=== PATIENT | female | born 1960 | race Caucasian/White ===

== ENCOUNTER 2016-10-15 10:30 | Emergency (ER) | payer OTHER ==
[~2016-10-15] VITALS: Ht 157.5 cm; Wt 78.7 kg
[~2016-10-15 10:30] MED LIST: ACETAMINOPHEN500 MG PO; ASPIR-LOW81 MG PO; AUGMENTIN875 MG PO; CIPRO500 MG PO; ENDOCET 5-3251 EACH PO; FLAGYL500 MG PO; FOLIC ACID1 MG PO; HYCODAN SYRUP480 ML PO; HYDROCHLOROTH12.5 M3 PO; KEFLEX500 MG PO; LISINOPRIL20 MG PO; MEDROL DOSEPAK4 MG PO; MOTRIN800 MG PO; NORCO 7.5/321 TABLET PO; PERCOCET 5/31 TABLET PO; PHENERGAN-CODE120 ML PO; PRAVASTATIN SOD40 MG PO; PREDNISONE20 MG PO; TESSALON PERLE100 MG PO; THIAMINE HCL100 MG PO; TYLENOL WITH C1 EACH PO; ZITHROMAX Z-PA250 MG PO
[2016-10-15 13:27] VITALS: BP 147/76
== END 2016-10-15 13:28 | disposition home or self-care (01) ==
LOC: EME 10:30
DX: S60.011A Contusion of right thumb without damage to nail, initial encounter (principal); X58.XXXA Exposure to other specified factors, initial encounter; I10 Essential (primary) hypertension; Z86.73 Personal history of transient ischemic attack (TIA), and cerebral infarction without residual deficits; Z87.891 Personal history of nicotine dependence; Z79.82 Long term (current) use of aspirin
CPT/HCPCS: 73140; 93971; 99281; 99284

== ENCOUNTER 2016-11-12 17:40 | Emergency (ER) | payer OTHER ==
[~2016-11-12] VITALS: Ht 157.5 cm; Wt 79.4 kg
[2016-11-12 19:12] LABS: HEMATOCRIT 39.6 % (36.0-46.0); MCH 32.5 PG (29.0-34.0); MCHC 34.3 G/DL (30.0-36.0); MCV 94.5 FL (83-99); MEAN PLAT.VOLUME 9.3 uM^3 (9.5-12.4); PLATELET COUNT 224 K/uL (156-360); RBC DIS.WIDTH-CV 12.5 % (11.8-14.6); RBC DIS.WIDTH-SD 43.3 % (39-53); RED BLOOD COUNT 4.19 M/uL (3.80-5.20)
[2016-11-12 19:20] LABS: CHLORIDE 107 mEq/L (99-109); POTASSIUM 4.3 mEq/L (3.7-5.4); SODIUM 139 mEq/L (136-147)
[2016-11-12 19:22] LABS: GLUCOSE 95 mg/dL (70-99)
[2016-11-12 19:23] LABS: ANION GAP 7 MEQ/L (2-14)
[2016-11-12 19:24] LABS: TOTAL BILIRUBIN 0.7 mg/dL (0.0-1.0)
[2016-11-12 19:26] LABS: ALKALINE PHOSPHATASE 66 IU/L (3-129); GFR ESTIMATE (CALCULATED) > 59 mL/min/
[2016-11-12 19:27] LABS: UREA NITROGEN (BUN) 17 mg/dL (9-23)
[2016-11-12 19:29] LABS: LIPASE 16 U/L (1.0-51.0)
[2016-11-12] MEDS ORDERED: ULTRACET1 TABLET PO (21:02)
[2016-11-12 21:12] VITALS: BP 198/91
== END 2016-11-12 21:14 | disposition home or self-care (01) ==
LOC: EME 17:40
PROVIDERS: Physician Assistant
DX: R22.2 Localized swelling, mass and lump, trunk (principal); R22.1 Localized swelling, mass and lump, neck; M54.2 Cervicalgia; R05 Cough
CPT/HCPCS: 70491; 71260; 80053; 83690; 85027; 99281; 99284; J1885; J2765; J7040

== ENCOUNTER 2016-12-29 10:33 | Emergency (ER) | payer OTHER ==
[~2016-12-29] VITALS: Ht 157.5 cm; Wt 79.2 kg
[~2016-12-29 10:33] MED LIST changes: +ULTRACET1 TABLET PO
[2016-12-29 11:42] LABS: HEMATOCRIT 37.4 % (36.0-46.0); MCH 32.7 PG (29.0-34.0); MCHC 34.2 G/DL (30.0-36.0); MCV 95.4 FL (83-99); MEAN PLAT.VOLUME 9.1 uM^3 (9.5-12.4); PLATELET COUNT 214 K/uL (156-360); RBC DIS.WIDTH-CV 12.4 % (11.8-14.6); RBC DIS.WIDTH-SD 42.5 % (39-53); RED BLOOD COUNT 3.92 M/uL (3.80-5.20)
[2016-12-29 11:55] LABS: CHLORIDE 107 mEq/L (99-109); POTASSIUM 4.5 mEq/L (3.7-5.4); SODIUM 139 mEq/L (136-147)
[2016-12-29 11:56] LABS: GLUCOSE 105 mg/dL (70-99)
[2016-12-29 11:58] LABS: ANION GAP 10 MEQ/L (2-14)
[2016-12-29 12:00] LABS: GFR ESTIMATE (CALCULATED) > 59 mL/min/
[2016-12-29 12:01] LABS: UREA NITROGEN (BUN) 19 mg/dL (9-23)
[2016-12-29 13:18] LABS: ADD MIUA? YES; BILIRUBIN NEGATIVE; BLOOD NEGATIVE; COLOR AMBER ((YELLOW)); GLUCOSE (STRIP) NEGATIVE; KETONES NEGATIVE; LEUKOCYTES MODERATE; NITRITE NEGATIVE; PROTEIN (STRIP) NEGATIVE; SPECIFIC GRAVITY 1.018 (1.000-1.030)
[2016-12-29 13:24] LABS: BACTERIA NONE SEEN /HPF; EPITHELIAL CELLS 2+ /HPF; MUCUS TRACE /LPF
[2016-12-29] MEDS ORDERED: ULTRAM50 MG PO (14:59)
[2016-12-29 15:09] VITALS: BP 156/74
[2016-12-30] MEDS ORDERED: ASPIRIN81 M2 PO (17:14)
== END 2016-12-29 15:14 | disposition home or self-care (01) ==
LOC: EME 10:33 → EXP 10:33
DX: N12 Tubulo-interstitial nephritis, not specified as acute or chronic (principal); I10 Essential (primary) hypertension; Z86.73 Personal history of transient ischemic attack (TIA), and cerebral infarction without residual deficits
CPT/HCPCS: 80048; 81003; 85027; 87040; 87086; 99281; 99285; J1335; J1885; J7030; J7050

== ENCOUNTER 2017-08-19 09:12 | Emergency (ER) | payer OTHER ==
[~2017-08-19] VITALS: Ht 157.5 cm; Wt 180.0 kg
[~2017-08-19 09:12] MED LIST changes: +ASPIRIN81 M2 PO; +ULTRAM50 MG PO
[2017-08-19 10:14] LABS: APPEARANCE SL.HAZY ((CLEAR)); BILIRUBIN NEGATIVE; BLOOD NEGATIVE; COLOR YELLOW ((YELLOW)); GLUCOSE (STRIP) NEGATIVE; KETONES NEGATIVE; LEUKOCYTES TRACE; NITRITE NEGATIVE; PROTEIN (STRIP) NEGATIVE; SPECIFIC GRAVITY 1.021 (1.000-1.030)
[2017-08-19 10:19] LABS: BACTERIA NONE SEEN /HPF; EPITHELIAL CELLS RARE /HPF; MUCUS NONE SEEN /LPF; RED BLOOD CELLS 0-5 /HPF (0-5); WHITE BLOOD CELLS 0-5 /HPF (0-5)
[2017-08-19] MEDS ORDERED: NAPROSYN500 MG PO (10:49)
[2017-08-19] MEDS ORDERED: FLEXERIL10 MG PO (10:49)
[2017-08-19 11:00] VITALS: BP 122/76
== END 2017-08-19 11:01 | disposition home or self-care (01) ==
LOC: EME 09:12
PROVIDERS: Nurse Practitioner Family
DX: M54.5 Low back pain (principal); M25.551 Pain in right hip; M25.552 Pain in left hip; R30.0 Dysuria; M25.512 Pain in left shoulder; W01.0XXA Fall on same level from slipping, tripping and stumbling without subsequent striking against object, initial encounter; I10 Essential (primary) hypertension; Z88.1 Allergy status to other antibiotic agents
CPT/HCPCS: 72100; 72170; 73030; 81003; 99281; 99284

== ENCOUNTER 2017-09-26 11:34 | Emergency (ER) | payer OTHER ==
[~2017-09-26] VITALS: Ht 157.5 cm; Wt 81.3 kg
[~2017-09-26 11:34] MED LIST changes: +FLEXERIL10 MG PO; +NAPROSYN500 MG PO
[2017-09-26] MEDS ORDERED: MOBIC7.5 MG PO (13:28)
[2017-09-26] MEDS ORDERED: ULTRAM50 MG PO (13:28)
[2017-09-26 14:03] VITALS: BP 144/84
== END 2017-09-26 14:04 | disposition home or self-care (01) ==
LOC: EME 11:34
DX: S43.402A Unspecified sprain of left shoulder joint, initial encounter (principal); W17.89XA Other fall from one level to another, initial encounter; Y92.812 Truck as the place of occurrence of the external cause; I10 Essential (primary) hypertension; Z86.73 Personal history of transient ischemic attack (TIA), and cerebral infarction without residual deficits; Z87.891 Personal history of nicotine dependence
CPT/HCPCS: 71045; 73030; 99281; 99284